=== PATIENT | female | born 1945 | race Caucasian/White ===

== ENCOUNTER 2019-07-03 11:25 | Emergency (ER) | payer BC, MEDICARE, OTHER ==
[~2019-07-03] VITALS: Ht 170.2 cm; Wt 59.0 kg
[~2019-07-03 11:25] MED LIST: BUPR75TA8; ESTR1TAB; LEVO125T8; ZOLP10TA6
[2019-07-03] MEDS ORDERED: NEBI5TAB8 PO (11:42)
[2019-07-03] MEDS ORDERED: APIX5TAB4 PO (11:42)
[2019-07-03] MEDS ORDERED: BUPR150T5 PO (11:42)
--- NOTE | 2019-07-03 11:44 | NUR ---
KYLAH MARVIN AT BEDSIDE FOR MSE.
--- NOTE | 2019-07-03 12:30 | NUR ---
Patient discharged to home in stable conditon. Written and verbal after care instructions given. Patient verbalizes understanding of instructions. ALL BELONGINGS W/ PT. PT SELF-AMBULATED W/O DIFFICULTY.
[2019-07-03 12:31] VITALS: BP 122/66
== END 2019-07-03 12:31 | disposition home or self-care (01) ==
LOC: ER 11:25
DX: S22.31XA Fracture of one rib, right side, initial encounter for closed fracture (principal); Z79.899 Other long term (current) drug therapy; W18.39XA Other fall on same level, initial encounter; Y93.89 Activity, other specified; Y92.89 Other specified places as the place of occurrence of the external cause; Y99.8 Other external cause status
CPT/HCPCS: 71101; A4663

== ENCOUNTER 2020-03-11 14:02 | Emergency (ER) | payer BC ==
[~2020-03-11] VITALS: Ht 170.2 cm; Wt 59.0 kg
[~2020-03-11 14:02] MED LIST changes: +APIX5TAB4 PO; +BUPR150T5 PO; +NEBI5TAB8 PO
--- NOTE | 2020-03-11 14:10 | NUR ---
Dr. Parker at bedside for MSE
--- NOTE | 2020-03-11 14:29 | NUR ---
Patient discharged to home in stable condition. Written and verbal after care instructions given. Patient verbalizes understanding of instructions. Stressed follow up or return to ER for worsening s/s. Patient ambulating with steady gait. NAD noted
[2020-03-11 14:31] VITALS: BP 131/72
== END 2020-03-11 14:29 | disposition home or self-care (01) ==
LOC: ER 14:02
DX: B37.9 Candidiasis, unspecified (principal); Z86.73 Personal history of transient ischemic attack (TIA), and cerebral infarction without residual deficits
CPT/HCPCS: A4663

== ENCOUNTER 2020-09-30 16:40 | Inpatient (IN) | payer BC ==
[~2020-09-30] VITALS: Ht 170.2 cm; Wt 59.0 kg
[2020-09-30] MEDS ORDERED: ATOR40TA PO (17:20)
[2020-09-30] MEDS ORDERED: LEVA0.6320 IH (17:20)
[2020-09-30] MEDS ORDERED: LEVO125T8 PO (17:20)
[2020-09-30] MEDS ORDERED: NEOM10DR11 LEFT EAR (17:20)
[2020-09-30] MEDS ORDERED: AZIT250T13 PO (17:20)
[2020-09-30 17:45] LABS: BASOPHILS % (AUTO) 0.2 % (0.0-2.0); EOSINOPHILS % (AUTO) 0.3 % (0.0-7.0); HEMATOCRIT 35.3 % (31.2-41.9); HEMOGLOBIN 11.9 g/dL (10.9-14.3); LYMPHOCYTES # (AUTO) 2.3 K/uL (20.0-40.0); LYMPHOCYTES % (AUTO) 26.2 % (20.5-51.5); MEAN CORPUSCULAR HEMOGLOBIN 30.4 uug (24.7-32.8); MEAN CORPUSCULAR HGB CONC 34 g/dL (32.3-35.6); MEAN CORPUSCULAR VOLUME 90.1 fL (75.5-95.3); MONOCYTES # (AUTO) 1.1 K/uL (2.0-10.0); MONOCYTES % (AUTO) 12.7 % (0.0-11.0); NEUTROPHILS # (AUTO) 5.3 K/uL (1.8-8.9); NEUTROPHILS % (AUTO) 60.6 % (38.5-71.5); PLATELET COUNT (AUTO) 240 K/uL (179-408); RED BLOOD CELL COUNT(AUTO) 3.92 MIL/uL (3.63-4.92); WHITE BLOOD COUNT (AUTO) 8.7 K/uL (3.8-11.8)
[2020-09-30 17:50] LABS: CREATININE 0.9 mg/dL (0.6-1.3); POTASSIUM 3.8 mmol/L (3.5-5.1)
[2020-09-30 18:02] LABS: BILIRUBIN,DIRECT 0.2 mg/dL (0.0-0.2); BILIRUBIN,TOTAL 0.5 mg/dL (0.2-1.0); TOTAL PROTEIN, SERUM 8.5 g/dL (6.4-8.2)
[2020-09-30] MEDS ORDERED: SWABABLE VALVE TRANSFER SET EA MC ONE ×2 (18:44→18:51)
[2020-09-30] MEDS ORDERED: IV NORMAL SALINE 0 ML IV ONE (18:44)
[2020-09-30] MEDS ORDERED: IOHEXOL 350 100 ML INFUS..BTL ONE ×2 (18:44→18:51)
[2020-09-30] MEDS ORDERED: MAGNESIUM HYDROXIDE 30 ML LIQUID UDC PO PRN (18:45)
[2020-09-30] MEDS ORDERED: ACETAMINOPHEN 325 MG TABLET PO PRN (18:45)
[2020-09-30] MEDS ORDERED: ONDANSETRON 4 MG/2 ML VIAL IV PRN (18:45)
[2020-09-30] MEDS ORDERED: Z GUARD REMEDY PASTE 57 GM TUBE TOP PRN (18:45)
[2020-09-30] MEDS ORDERED: IV NORMAL SALINE 250 ML IV ONE (18:51)
[2020-09-30] MEDS: FUROSEMIDE 40 MG/4 ML VIAL IV SCH (18:51)
[2020-09-30] MEDS ORDERED: ASPIRIN 81 MG TAB.CHEW PO ONE (19:15)
[2020-09-30] MEDS ORDERED: ASPIRIN 81 MG TAB.CHEW ONE (20:14)
[2020-09-30 21:50] VITALS: BP 145/75
[2020-10-01] VITALS: BP 100/76
[2020-10-01 04:00] VITALS: BP 139/79
[2020-10-01] MEDS: LEVOTHYROXINE SODIUM 125 MCG TABLET PO SCH (06:47)
[2020-10-01 07:30] LABS: BASOPHILS % (AUTO) 0.2 % (0.0-2.0); EOSINOPHILS # (AUTO) 0.1 K/uL (0.0-0.7); HEMATOCRIT 36.1 % (31.2-41.9); HEMOGLOBIN 12.3 g/dL (10.9-14.3); LYMPHOCYTES # (AUTO) 1.8 K/uL (20.0-40.0); LYMPHOCYTES % (AUTO) 22.5 % (20.5-51.5); MEAN CORPUSCULAR HEMOGLOBIN 30.6 uug (24.7-32.8); MEAN CORPUSCULAR HGB CONC 34 g/dL (32.3-35.6); MEAN CORPUSCULAR VOLUME 89.9 fL (75.5-95.3); MONOCYTES % (AUTO) 12.9 % (0.0-11.0); NEUTROPHILS # (AUTO) 5.1 K/uL (1.8-8.9); NEUTROPHILS % (AUTO) 63.4 % (38.5-71.5); PLATELET COUNT (AUTO) 245 K/uL (179-408); RED BLOOD CELL COUNT(AUTO) 4.01 MIL/uL (3.63-4.92)
[2020-10-01 07:38] LABS: BILIRUBIN,TOTAL 0.6 mg/dL (0.2-1.0); MAGNESIUM 2.1 mg/dL (1.8-2.4); TOTAL PROTEIN, SERUM 8.6 g/dL (6.4-8.2)
[2020-10-01] MEDS: FUROSEMIDE 40 MG/4 ML VIAL IV SCH (08:13)
[2020-10-01] MEDS: METOPROLOL TARTRATE 25 MG TABLET PO SCH ×2 (08:16→20:38)
[2020-10-01] MEDS: APIXABAN 5 MG TABLET PO SCH ×2 (08:20→20:39)
[2020-10-01] MEDS ORDERED: buPROPion SR 150 MG TABLET.SA PO SCH (09:00)
[2020-10-01 11:47] VITALS: BP 121/65
[2020-10-01 16:00] VITALS: BP 125/70
[2020-10-01] MEDS ORDERED: ATORVASTATIN 40 MG TABLET PO SCH (18:00)
[2020-10-01 20:00] VITALS: BP 149/83
[2020-10-02] VITALS: BP 150/78
[2020-10-02 04:00] VITALS: BP 147/89
[2020-10-02] MEDS: LEVOTHYROXINE SODIUM 125 MCG TABLET PO SCH (06:15)
[2020-10-02] MEDS: APIXABAN 5 MG TABLET PO SCH (08:37)
[2020-10-02] MEDS: METOPROLOL TARTRATE 25 MG TABLET PO SCH (10:03)
[2020-10-02 11:30] VITALS: BP 131/78
== END 2020-10-02 12:15 | disposition home or self-care (01) | DRG 291 ==
LOC: ER 16:42 → TELE3 21:37 → MEDSURG3 10-02 10:38
PROVIDERS: ADMIT Internal Medicine; ATTEND Internal Medicine
DX: I11.0 Hypertensive heart disease with heart failure (principal); I50.31 Acute diastolic (congestive) heart failure; D68.59 Other primary thrombophilia; I48.0 Paroxysmal atrial fibrillation; Z79.01 Long term (current) use of anticoagulants; Z20.822 Contact with and (suspected) exposure to COVID-19; F32.9 Major depressive disorder, single episode, unspecified; E03.9 Hypothyroidism, unspecified; Z79.890 Hormone replacement therapy; J43.9 Emphysema, unspecified; Z87.891 Personal history of nicotine dependence; Z86.73 Personal history of transient ischemic attack (TIA), and cerebral infarction without residual deficits; I25.10 Atherosclerotic heart disease of native coronary artery without angina pectoris; F41.9 Anxiety disorder, unspecified; E78.5 Hyperlipidemia, unspecified
CPT/HCPCS: 36415; 70030-TC; 71045; 71275; 83735; 84100; 85025; 85730; 93005; 93307; A4663; G0378; J1940; J7050; Q9967; U0003

== ENCOUNTER 2021-03-19 17:17 | Emergency (ER) | payer BC, MEDICAID ==
[~2021-03-19] VITALS: Ht 167.6 cm; Wt 58.5 kg
[~2021-03-19 17:17] MED LIST changes: +ATOR40TA PO; -BUPR75TA8; -ESTR1TAB; +LEVA0.6320 IH; -LEVO125T8; +LEVO125T8 PO; +NEOM10DR11 LEFT EAR; -ZOLP10TA6
--- NOTE | 2021-03-19 17:49 | NUR ---
[email or web address], medical screening exam in progress
--- NOTE | 2021-03-19 18:01 | NUR ---
Patient was discharge to home in stable condition with steady gait. All belongings were handed to patient before leaving. Verbal and written discharge instructions were given to patient. Patient verbalized understanding and compliance and will follow-up with primary doctor and the recommended specialist (infectious disease doctor) if needed. Stressed follow-up and to return to ER for worsening s/sx were emphasized.
== END 2021-03-19 18:02 | disposition home or self-care (01) ==
LOC: ER 17:17
DX: J02.8 Acute pharyngitis due to other specified organisms (principal); E78.5 Hyperlipidemia, unspecified; E03.9 Hypothyroidism, unspecified; Z86.73 Personal history of transient ischemic attack (TIA), and cerebral infarction without residual deficits; I25.10 Atherosclerotic heart disease of native coronary artery without angina pectoris; Z79.890 Hormone replacement therapy; Z79.01 Long term (current) use of anticoagulants; F32.9 Major depressive disorder, single episode, unspecified; Z79.899 Other long term (current) drug therapy
CPT/HCPCS: A4663

== ENCOUNTER 2021-12-14 17:47 | Emergency (ER) | payer BC, OTHER ==
[~2021-12-14] VITALS: Ht 165.1 cm; Wt 60.3 kg
--- NOTE | 2021-12-14 18:00 | NUR ---
Patient seen in the waiting area.
[2021-12-14] MEDS ORDERED: CEPH500C2 PO (18:07)
[2021-12-14] MEDS ORDERED: SULF1TAB48 PO (18:07)
[2021-12-14] MEDS ORDERED: ACET-2605 PO (18:07)
--- NOTE | 2021-12-14 18:24 | NUR ---
WALKER DISPENSED PER MD ORDER - REFUSED GAIT TRAINING, PT STATES SHE HARDLY NEEDS IT - DAUGHTER INSISTED. PT DISCHARGED AMBULATORY WITHOUT ASSISTANCE.
--- NOTE | 2021-12-14 18:24 | NUR ---
Patient provided with a walker as ordered by Md. daughter at bedside, Ms. Emmanuel Feng refusing to take the walker stating "I can walk by myself I don't needed it." Daughter became upset with patient, and both of them having a big argument in the room.
--- NOTE | 2021-12-14 18:26 | NUR ---
Pt. left ambulatory, steady gait slightly limping. dcd instruction signed by daughter.
== END 2021-12-14 18:27 | disposition home or self-care (01) ==
LOC: ER 17:49
DX: S92.512A Displaced fracture of proximal phalanx of left lesser toe(s), initial encounter for closed fracture (principal); S93.505A Unspecified sprain of left lesser toe(s), initial encounter; W22.8XXA Striking against or struck by other objects, initial encounter; Y92.89 Other specified places as the place of occurrence of the external cause; L03.116 Cellulitis of left lower limb; E03.9 Hypothyroidism, unspecified; Z86.73 Personal history of transient ischemic attack (TIA), and cerebral infarction without residual deficits; E78.5 Hyperlipidemia, unspecified; I10 Essential (primary) hypertension; I25.10 Atherosclerotic heart disease of native coronary artery without angina pectoris; Z79.899 Other long term (current) drug therapy; Z79.890 Hormone replacement therapy; Z79.01 Long term (current) use of anticoagulants
CPT/HCPCS: 73630; A4663

== ENCOUNTER 2022-06-22 11:31 | Inpatient (IN) | payer BC, OTHER ==
[~2022-06-22] VITALS: Ht 167.6 cm; Wt 68.9 kg
[~2022-06-22 11:31] MED LIST changes: +ACET-2605 PO; -NEOM10DR11 LEFT EAR
--- NOTE | 2022-06-22 11:45 | NUR ---
ER MD ASSESSING PT AT TRIAGE. PT IN NAD VSS; DENIES PAIN AT THIS TIME DAUGHTER IS WITH HER AND PROVIDING MED. HX
--- NOTE | 2022-06-22 11:57 | NUR ---
URINE SAMPLE COLLECTED AND SENT TO LAB
[2022-06-22] MEDS ORDERED: IV NORMAL SALINE 500 ML BAG IV ONE ×3 (12:00→13:45)
[2022-06-22 12:15] LABS: *BILIRUBIN,URIN NEGATIVE (NEGATIVE); *BLOOD, URINE 2+ (NEGATIVE); *CLARITY,URINE SLIGHTLY CLOUDY (CLEAR); *COLOR,URINE YELLOW (YELLOW); *KETONES,URINE NEGATIVE (NEGATIVE); *UROBILINOGEN,URINE 0.2 E.U./dl (NORMAL); LEUKOCYTE ESTERASE ,URINE 3+ (NEGATIVE); NITRITE, URINE NEGATIVE (NEGATIVE); UGLUCOSE NEGATIVE (NEGATIVE)
[2022-06-22 12:17] LABS: HEMATOCRIT 33.8 % (31.2-41.9); MEAN CORPUSCULAR HEMOGLOBIN 31.2 uug (24.7-32.8); MEAN CORPUSCULAR VOLUME 90.4 fL (75.5-95.3); PLATELET COUNT (AUTO) 220 K/uL (179-408)
[2022-06-22 12:29] LABS: CARBON DIOXIDE 26 mmol/L (21-32); CHLORIDE 96 mmol/L (98-107); CREATININE 2.9 mg/dL (0.6-1.3); GLUCOSE 103 mg/dL (74-106); POTASSIUM 4.7 mmol/L (3.5-5.1); UREA NITROGEN, BLOOD 51 mg/dL (7-18)
[2022-06-22 12:35] LABS: ALANINE AMINOTRANSFERASE 22 U/L (14-59); ALKALINE PHOSPHATASE 76 U/L (50-136); ASPARTATE AMINOTRANSFERASE 14 U/L (15-37); BILIRUBIN,TOTAL 0.5 mg/dL (0.2-1.0); TOTAL PROTEIN, SERUM 8.9 g/dL (6.4-8.2)
[2022-06-22] MEDS ORDERED: CEFTRIAXONE 1 G in IV DEXTROSE 5% 50 ML IV ONE (13:45)
[2022-06-22] MEDS ORDERED: CEFTRIAXONE /D5W 50ML IVPB **ER PYXIS IV ONE (14:11)
[2022-06-22 14:42] LABS: BACTERIA,URINE MODERATE /HPF (NONE SEEN); SQUAMOUS EPITHELIAL CELL,UR FEW /HPF (NONE SEEN); WBC,URINE TNTC /HPF (0-3)
[2022-06-22] MEDS ORDERED: BUPR100T13 PO (15:18)
[2022-06-22] MEDS ORDERED: OLME20TA13 PO (15:18)
[2022-06-22] MEDS ORDERED: AMPH15TA2 PO (15:18)
[2022-06-22] MEDS ORDERED: ALBU8.5H8 IH (15:18)
[2022-06-22] MEDS ORDERED: HYDR-3980 PO (15:18)
[2022-06-22] MEDS ORDERED: AMPH30CA3 PO (15:18)
[2022-06-22] MEDS ORDERED: CLON0.1T PO (15:18)
[2022-06-22] MEDS ORDERED: MIRT-93 PO (15:18)
[2022-06-22] MEDS ORDERED: DEXT30TA10 PO (15:19)
--- NOTE | 2022-06-22 15:45 | NUR ---
SBAR TO [facility]; COVID SWAB TAKEN TO LAB.
--- NOTE | 2022-06-22 16:53 | NUR ---
77 year old female received to room 309 for uti ,sepsis .pt is ax2 brp.call light with in reach . notified for the admission orders
[2022-06-22 17:00] VITALS: BP 138/90
[2022-06-22] MEDS: ACETAMINOPHEN 325 MG TABLET PO PRN (17:33)
[2022-06-22] MEDS ORDERED: ALBUTEROL SULFATE 8 GM HFA.AER.AD IH PRN (18:45)
[2022-06-22] MEDS ORDERED: CLONIDINE HCL 0.1 MG TABLET PO PRN (18:45)
[2022-06-22] MEDS ORDERED: ZOLPIDEM 5 MG TABLET PO PRN (19:15)
[2022-06-22] MEDS ORDERED: ACETAMINOPHEN 325 MG TABLET PO PRN (19:15)
[2022-06-22] MEDS ORDERED: ONDANSETRON 4 MG/2 ML VIAL IV PRN (19:15)
[2022-06-22] MEDS ORDERED: MAGNESIUM HYDROXIDE 30 ML LIQUID UDC PO PRN (19:15)
[2022-06-22] MEDS ORDERED: REMEDY ESSENTIAL ZINC PASTE 113 GM TP PRN (19:15)
[2022-06-22] MEDS ORDERED: ALBUTEROL SULFATE 2.5 MG/3 ML NEBU NEB PRN ×2 (19:15)
[2022-06-22 20:00] VITALS: BP 120/64
[2022-06-22] MEDS ORDERED: IBUPROFEN 400 MG TABLET PO ONE (20:30)
[2022-06-22] MEDS: MIRTAZAPINE 15 MG TABLET PO SCH (20:34)
[2022-06-22] MEDS: buPROPion 100 MG TABLET PO SCH (20:35)
[2022-06-22] MEDS: ATORVASTATIN 40 MG TABLET PO SCH (20:35)
[2022-06-22] MEDS: APIXABAN 5 MG TABLET PO SCH (20:35)
[2022-06-23 04:00] VITALS: BP 118/64
--- NOTE | 2022-06-23 05:42 | NUR ---
Rectal temp of 104 recorded last night. Eliud Irvin notified with orders for 2 sets of stat blood cultures and a one time dose of 400mg Motrin. Able to swallow pills whole. No other fever noted throughout the shift. Able to ambulate with standby assist. Safety maintained. Will endorse to day shift.
[2022-06-23] MEDS: LEVOTHYROXINE SODIUM 125 MCG TABLET PO SCH (06:15)
[2022-06-23 06:33] LABS: HEMATOCRIT 34.1 % (31.2-41.9); MEAN CORPUSCULAR VOLUME 90.5 fL (75.5-95.3); PLATELET COUNT (AUTO) 202 K/uL (179-408)
[2022-06-23 06:53] LABS: ALANINE AMINOTRANSFERASE 27 U/L (14-59); ALKALINE PHOSPHATASE 63 U/L (50-136); ASPARTATE AMINOTRANSFERASE 24 U/L (15-37); BILIRUBIN,TOTAL 0.4 mg/dL (0.2-1.0); CARBON DIOXIDE 28 mmol/L (21-32); CHLORIDE 103 mmol/L (98-107); CHOLESTEROL 83 mg/dL (<200); CREATININE 1.8 mg/dL (0.6-1.3); GLUCOSE 87 mg/dL (74-106); HDL CHOLESTEROL 37 mg/dL (40-60); MAGNESIUM 2.2 mg/dL (1.8-2.4); PHOSPHOROUS 4.1 mg/dL (2.5-4.9); POTASSIUM 4.9 mmol/L (3.5-5.1); TOTAL PROTEIN, SERUM 7.6 g/dL (6.4-8.2); TRIGLYCERIDES 48 MG/DL (30-150); UREA NITROGEN, BLOOD 42 mg/dL (7-18)
[2022-06-23 06:56] LABS: THYROID STIMULATING HORMONE 1.683 mIU/mL (0.358-3.740)
[2022-06-23] MEDS: buPROPion 100 MG TABLET PO SCH ×2 (08:34→20:54)
[2022-06-23] MEDS: APIXABAN 5 MG TABLET PO SCH ×2 (08:34→20:55)
[2022-06-23] MEDS: LOSARTAN POTASSIUM 50 MG TABLET PO SCH (08:39)
[2022-06-23] MEDS: HYDROCODONE/APAP 10-325 MG TABLET PO SCH ×2 (09:00→14:03)
[2022-06-23 12:00] VITALS: BP 114/66
[2022-06-23] MEDS ORDERED: TRAZ-257 PO (14:01)
[2022-06-23] MEDS ORDERED: OLME5TAB6 PO (14:01)
[2022-06-23] MEDS ORDERED: MECL-159 PO (14:03)
[2022-06-23] MEDS ORDERED: TRAM50TA2 PO (14:03)
[2022-06-23] MEDS ORDERED: ALPR1TAB7 PO (14:03)
--- NOTE | 2022-06-23 14:04 | NUR ---
Patient refused her morning dose of [place] and now she wants the dose at 1400. I'm going to administer her [place] now, instead of 1700 as she says she is in pain now.
[2022-06-23] MEDS: CEFTRIAXONE 1 G in IV DEXTROSE 5% 50 ML IV SCH (14:19)
[2022-06-23] MEDS ORDERED: MECLIZINE HCL 25 MG TABLET PO PRN (15:15)
[2022-06-23 16:00] VITALS: BP 123/58
[2022-06-23] MEDS: ALPRAZOLAM 0.5 MG TABLET PO SCH (16:50)
[2022-06-23] MEDS: TRAMADOL HCL 50 MG TABLET PO SCH (16:51)
[2022-06-23 20:00] VITALS: BP 104/68
[2022-06-23] MEDS: MIRTAZAPINE 15 MG TABLET PO SCH (20:55)
[2022-06-23] MEDS: TRAZODONE 100 MG TABLET PO SCH (20:55)
[2022-06-23] MEDS: ATORVASTATIN 40 MG TABLET PO SCH (20:55)
[2022-06-24 04:00] VITALS: BP 161/77
[2022-06-24] MEDS: ACETAMINOPHEN 325 MG TABLET PO PRN (04:22)
[2022-06-24 06:18] LABS: HEMATOCRIT 31.8 % (31.2-41.9); MEAN CORPUSCULAR HEMOGLOBIN 31.1 uug (24.7-32.8); MEAN CORPUSCULAR VOLUME 88.7 fL (75.5-95.3); PLATELET COUNT (AUTO) 197 K/uL (179-408)
[2022-06-24 06:26] LABS: CREATININE 1.1 mg/dL (0.6-1.3); MAGNESIUM 1.8 mg/dL (1.8-2.4); PHOSPHOROUS 2.6 mg/dL (2.5-4.9); POTASSIUM 3.8 mmol/L (3.5-5.1)
[2022-06-24] MEDS: LEVOTHYROXINE SODIUM 125 MCG TABLET PO SCH (06:41)
--- NOTE | 2022-06-24 07:54 | NUR ---
INFORMATION SENT:FACESHEET,24 HRS REPORT,PROGRESS NOTES 06/23,CONSULTATION 06/23,UR 06/23 FAXED CLINICALS TO GABRIEL REYES SR/VITA@[phone] FAX SENT BY MARLENA
[2022-06-24] MEDS: ALPRAZOLAM 0.5 MG TABLET PO SCH ×2 (08:24→17:24)
[2022-06-24] MEDS: TRAMADOL HCL 50 MG TABLET PO SCH ×2 (08:25→17:27)
[2022-06-24] MEDS: HYDROCODONE/APAP 10-325 MG TABLET PO SCH ×2 (08:25→17:25)
[2022-06-24] MEDS: LOSARTAN POTASSIUM 50 MG TABLET PO SCH (08:29)
[2022-06-24] MEDS: APIXABAN 5 MG TABLET PO SCH ×2 (08:30→20:48)
[2022-06-24] MEDS: buPROPion 100 MG TABLET PO SCH ×2 (09:20→20:49)
[2022-06-24 09:23] VITALS: BP 107/53
[2022-06-24 11:24] VITALS: BP 103/63
[2022-06-24] MEDS: ENSURE ENLIVE (VAN) 240 ML LIQUID PO SCH ×2 (14:44→17:43)
[2022-06-24] MEDS: CEFTRIAXONE 1 G in IV DEXTROSE 5% 50 ML IV SCH (14:44)
--- NOTE | 2022-06-24 15:00 | NUR ---
Patient complained on burnning pain of IV site. I noticed reddness and infiltration and removed her IV. Antibiotic had to stop. Called Nursing office to order midline because the patient is hard stick and is at risk of bleeding (takes Eliquis). Waiting for a midline team to come and put a midline and continue her antibiotic after that.
[2022-06-24 15:28] VITALS: BP 89/53
[2022-06-24] MEDS ORDERED: IV NORMAL SALINE 500 ML IV ONE (16:00)
--- NOTE | 2022-06-24 16:29 | NUR ---
SURGICAL RESIDENT told me patient's blood pressure was 89/53, pulse 68, I notified Dr Irvin. Dr Irvin ordered NS 500 ml bolus. After 15 minutes I rechecked her blood pressure and it is 100/63, pulse 83. Bolus haven't been administered since her blood pressure got better and went up and she doesn't have IV at the moment since her previous one was removed. Still waiting for midline to be inserted. Patient is sleeping right now. No pain, no distress.
[2022-06-24 20:13] VITALS: BP 104/55
[2022-06-24] MEDS: MIRTAZAPINE 15 MG TABLET PO SCH (20:47)
[2022-06-24] MEDS: TRAZODONE 100 MG TABLET PO SCH (20:47)
[2022-06-24] MEDS: ATORVASTATIN 40 MG TABLET PO SCH (20:47)
[2022-06-25 04:00] VITALS: BP 154/82
[2022-06-25] MEDS: LEVOTHYROXINE SODIUM 125 MCG TABLET PO SCH (06:14)
[2022-06-25] MEDS: buPROPion 100 MG TABLET PO SCH (08:34)
[2022-06-25] MEDS: ALPRAZOLAM 0.5 MG TABLET PO SCH (08:34)
[2022-06-25] MEDS: APIXABAN 5 MG TABLET PO SCH (08:35)
[2022-06-25] MEDS: TRAMADOL HCL 50 MG TABLET PO SCH (08:35)
[2022-06-25] MEDS: HYDROCODONE/APAP 10-325 MG TABLET PO SCH (08:35)
[2022-06-25] MEDS: LOSARTAN POTASSIUM 50 MG TABLET PO SCH (08:39)
[2022-06-25] MEDS: ENSURE ENLIVE (VAN) 240 ML LIQUID PO SCH ×2 (08:39→13:02)
[2022-06-25 10:51] VITALS: BP 105/58
[2022-06-25] MEDS: CEFTRIAXONE 1 G in IV DEXTROSE 5% 50 ML IV SCH (13:15)
--- NOTE | 2022-06-25 13:22 | NUR ---
Patient looks much more alert today than yesterday, she is more talkative and not drowsy. Looks more stable. Has better appetite, ate about 80% of her breakfast and lunch.
[2022-06-25 14:58] VITALS: BP 106/70
--- NOTE | 2022-06-25 15:40 | NUR ---
Patient walked to the bathroom herself, got dressed up herself and said she "felt fine", no signs of pain, patient was joking and waiting for her daughter to pick her up to go home. Her daughter Yvette came to pick her up and was upset that patient is getting discharged. In her opinion, her mom wasn't ready to go home. Doctor Irvin had a conversation with the patient earlier today and said she is stable to go home and looked much better than the other days. Doctor Irvin said she is read yto get discharged today and she can be picked up any time.
--- NOTE | 2022-06-25 16:01 | NUR ---
Patient left with her daughter Yvette by car. Dr Irvin hasn't finalized the DC order yet. I texted him to send patient's prescriptions to her pharmacy for grain picker. Called him but he hasn't answered. Waiting for his reply to make sure the prescriptions will be sent so I can notify patient's daughter when the prescriptions will be ready for grain picker.
[2022-06-25] MEDS ORDERED: LEVO500T90 PO (16:41)
== END 2022-06-25 15:40 | disposition home or self-care (01) | DRG 871 ==
LOC: ER 11:31 → MEDSURG3 14:59
PROVIDERS: ADMIT Nurse Practitioner Acute Care; ATTEND Nurse Practitioner Acute Care
DX: A41.9 Sepsis, unspecified organism (principal); G93.41 Metabolic encephalopathy; N17.0 Acute kidney failure with tubular necrosis; E87.1 Hypo-osmolality and hyponatremia; N10 Acute pyelonephritis; N39.0 Urinary tract infection, site not specified; B96.20 Unspecified Escherichia coli [E. coli] as the cause of diseases classified elsewhere; E03.9 Hypothyroidism, unspecified; F03.90 Unspecified dementia, unspecified severity, without behavioral disturbance, psychotic disturbance, mood disturbance, and anxiety; G89.29 Other chronic pain; E78.5 Hyperlipidemia, unspecified; I10 Essential (primary) hypertension; I25.10 Atherosclerotic heart disease of native coronary artery without angina pectoris; J43.9 Emphysema, unspecified; M19.90 Unspecified osteoarthritis, unspecified site; R65.20 Severe sepsis without septic shock; Z79.01 Long term (current) use of anticoagulants; Z86.73 Personal history of transient ischemic attack (TIA), and cerebral infarction without residual deficits; Z87.891 Personal history of nicotine dependence; Z20.822 Contact with and (suspected) exposure to COVID-19; Z87.440 Personal history of urinary (tract) infections
CPT/HCPCS: 36415; 70450; 71045; 83605; 83735; 84100; 84443; 84484; 85025; 87040; 87077; 87086; 93005; 93307; A4663; G0378; J0696; J7040

== ENCOUNTER 2023-01-13 17:26 | Emergency (ER) | payer MEDICARE, OTHER ==
[~2023-01-13] VITALS: Ht 165.1 cm; Wt 52.2 kg
[~2023-01-13 17:26] MED LIST changes: -ACET-2605 PO; +ALBU8.5H8 IH; +AMPH30CA3 PO; +BUPR100T13 PO; -BUPR150T5 PO; +CLON0.1T PO; -LEVA0.6320 IH; +LEVO500T90 PO; +MECL-159 PO; +MIRT-93 PO; -NEBI5TAB8 PO; +OLME5TAB6 PO; +TRAM50TA2 PO; +TRAZ-257 PO
--- NOTE | 2023-01-13 18:20 | NUR ---
seen and examined by MD Gutierrez
--- NOTE | 2023-01-13 19:25 | NUR ---
Patient discharged to home in stable condition. Written and verbal after care instructions given to patient and family memmber Patient verbalizes understanding of instructions. Stressed follow up or return to ER for worsening s/s.
[2023-01-13 19:26] VITALS: BP 135/85
== END 2023-01-13 19:27 | disposition home or self-care (01) ==
LOC: ER 17:28
DX: S16.1XXA Strain of muscle, fascia and tendon at neck level, initial encounter (principal); S09.90XA Unspecified injury of head, initial encounter; M25.532 Pain in left wrist; M25.531 Pain in right wrist; M25.572 Pain in left ankle and joints of left foot; M25.571 Pain in right ankle and joints of right foot; I10 Essential (primary) hypertension; I25.10 Atherosclerotic heart disease of native coronary artery without angina pectoris; E78.5 Hyperlipidemia, unspecified; J44.9 Chronic obstructive pulmonary disease, unspecified; E03.9 Hypothyroidism, unspecified; Z79.2 Long term (current) use of antibiotics; Z79.899 Other long term (current) drug therapy; X58.XXXA Exposure to other specified factors, initial encounter; Y93.89 Activity, other specified; Y92.89 Other specified places as the place of occurrence of the external cause; Y99.8 Other external cause status
CPT/HCPCS: A4663